=== PATIENT | female | born 1945 | race Caucasian/White ===

== ENCOUNTER 2016-10-26 13:48 | Outpatient (CLI) | payer MEDICARE, OTHER ==
--- NOTE | 2016-10-27 18:48 | XRAY Report ---
CHEST, PA AND LATERAL: 10/26/2016 CLINICAL HISTORY: Shortness of breath upon exertion. FINDINGS: Bony thorax is normal. Heart and great vessels appear normal. Mediastinum is not widened . Pulmonary parenchyma is normal. IMPRESSION: NORMAL EXAMINATION. JOB #: [id number] EXT JOB #:[id number]
== END 2016-10-26 13:49 | disposition home or self-care (01) ==
LOC: DI 13:48
PROVIDERS: ATTEND Physician Assistant
DX: R07.9 Chest pain, unspecified (principal); R06.00 Dyspnea, unspecified
CPT/HCPCS: 71020; 93306

== ENCOUNTER 2017-03-29 07:27 | Outpatient (CLI) | payer MEDICARE, OTHER ==
[2017-03-29] MEDS ORDERED: IOPAMIDOL-300 100 ML VIAL ONE (07:53)
[2017-03-29] MEDS ORDERED: IOPAMIDOL-300 100 ML VIAL IVP ONE (10:23)
--- NOTE | 2017-03-29 12:58 | CT Report ---
CT BRAIN WITH AND WITHOUT CONTRAST: 03/29/2017 CLINICAL INDICATION: Tremors, dizziness. TECHNIQUE: Axial CT images of the brain were obtained prior to and following 80 mL Isovue-300 intrav enously. No previous head CT is available for comparison. In accordance with CT protocol optimization, one or more of the following dose reduction techniques w ere utilized for this exam: automated exposure control, adjustment of mA and/or KV based on patient size, or use of iterative reconstructive technique. FINDINGS: The ventricles and sulci demonstrate mild symmetric enlargement, compatible with atrophy. There is no evidence of hemorrhage, mass effect, or midline shift. The basilar cisterns are patent. No abnormal enhancement is appreciated following contrast administration. The visualized orbital c ontents and paranasal sinuses are unremarkable. No calvarial fracture is seen. IMPRESSION: MILD ATROPHY. OTHERWISE, NORMAL CT OF THE BRAIN WITH AND WITHOUT CONTRAST. JOB #: [id number] EXT JOB #:[id number]
--- NOTE | 2017-03-30 10:25 | Ultrasound Report ---
CAROTID DUPLEX: 03/29/2017 CLINICAL INDICATION: Tremors, dizziness. TECHNIQUE: Real-time sonographic vascular imaging was performed by the nuclear medicine officer through the carotid arteries utilizing both color-flow and Doppler spectral analysis. Multiple electronics parts sales representative static images were saved for review. Vessel PSV cm/sec 2D Plaque Estimate % EDV cm/sec ICA/CCA PSV % Stenosis RCCA Prox 69 -- RCCA Dist 56 19 -- RECA 58 -- RT BULB 50 -- 9 0.89 CB Prox 50 -- 17 0.89 CB Mid 65 -- 25 1.16 CB Dist 80 -- 30 1.43 RVA 92 RVA flow direction: Antegrade. Vessel PSV cm/sec 2D Plaque Estimate % EDV cm/sec ICA/CCA PSV % Stenosis LCCA Prox 106 -- LCCA Dist 73 24 -- LECA 67 -- LFT BULB 72 -- 14 0.99 LICA Prox 72 -- 26 0.99 LICA Mid 109 -- 38 1.49 LICA Dist 84 -- 32 1.15 LVA 47 LVA flow direction: Antegrade. Velocity criteria are extrapolated from diameter data as defined by the Society of Radiologists in Ultrasound Consensus Conference Radiology 2003; 229; 340-346. Degree of Stenosis % ICA PSV cm/sec Plaque Estimate % ICA/CCA RSV Ratio ICA EDV cm/sec Normal < 125 None < 2.0 < 40 <50 < 125 < 50 < 2.0 < 40 50-69 125 - 130 >/= 50 2.0 - 4.0 40 - 100 >/= 70 but less than near occlusion > 230 >/= 50 > 4.0 > 100 Near occlusion High, low, or undetectable Visible lumen Variable Variable Total occlusion Undetectable No detectable lumen Not applicable Not applicable FINDINGS RIGHT: There is no plaquing in the right carotid bifurcation or internal carotid artery. LEFT: There is no plaquing in the left carotid bifurcation or internal carotid artery. The vertebral arteries demonstrate antegrade flow bilaterally. IMPRESSION: NORMAL CAROTID DUPLEX. [facility]
== END 2017-03-29 07:28 | disposition home or self-care (01) ==
LOC: DI 07:27
PROVIDERS: ATTEND Nurse Practitioner Family
DX: R42 Dizziness and giddiness (principal); R25.1 Tremor, unspecified; G31.9 Degenerative disease of nervous system, unspecified
CPT/HCPCS: 70470; 93880; Q9967

== ENCOUNTER 2017-05-13 13:17 | Outpatient (CLI) | payer MEDICARE, OTHER ==
--- NOTE | 2017-05-14 13:28 | Mammography Report ---
DATE OF SERVICE: 05/13/2017 DIGITAL BILATERAL SCREENING MAMMOGRAM: 05/13/2017 COMPARISON: Mammogram 04/16/2016. INDICATION: Screening mammography. TECHNIQUE: Bilateral MLO and CC breast views. FINDINGS: There are scattered fibroglandular densities. No dominant mass, architectural distortion, or concerning clusters of microcalcifications are seen. IMPRESSION: BIRADS CATEGORY 1-NEGATIVE. RECOMMENDATION: ANNUAL SCREENING MAMMOGRAM. STANDARD QUALIFYING STATEMENTS: 1. This examination was reviewed with the aid of Computer-Aided Detection (CAD) . 2. A negative or benign imaging report should not delay biopsy if clinically suspicious findings are present. Consider surgical consultation if warranted. More than 5% of cancers are not identified by imaging. 3. Dense breasts may obscure an underlying neoplasm. TD: 05/14/2017 14:27 MTDD
== END 2017-05-13 13:18 | disposition home or self-care (01) ==
LOC: DI.S 13:17
PROVIDERS: ATTEND Physician Assistant
DX: Z12.31 Encounter for screening mammogram for malignant neoplasm of breast (principal)
CPT/HCPCS: 77067

== ENCOUNTER 2018-06-03 13:53 | Outpatient (CLI) | payer MEDICARE, OTHER ==
--- NOTE | 2018-06-06 08:51 | Mammography Report ---
Reason: SCREENING MAMMO Procedure Date: 06/03/2018 Accession Number: [id number] / [id number] Procedure: LEONID - Screening Mammo w/Jerson CPT Code: FULL RESULT: EXAM: Screening mammogram with tomography. DATE: 06/03/2018 2:24 PM CLINICAL HISTORY: Screening encounter. No reported risk factors. TECHNIQUE: Bilateral CC and MLO views were obtained. COMPARISON: 05/13/2017 through 11/14/2013. FINDINGS: The breasts demonstrate scattered fibroglandular densities bilaterally. There are coarse typically benign calcifications. No suspicious masses, clustered microcalcifications, or regions of architectural distortion are identified. IMPRESSION: Benign findings RECOMMENDATION: Routine annual screening unless otherwise clinically indicated. BIRADS CATEGORY 2: Benign findings STANDARD QUALIFYING STATEMENTS: 1. This examination was not reviewed with the aid of Computer-Aided Detection (CAD). 2. A negative or benign imaging report should not preclude biopsy if clinically suspicious findings are present. 3. Dense breasts may obscure an underlying neoplasm. 4. This examination was reviewed with the aid of 3D breast imaging (tomosynthesis).
== END 2018-06-03 13:54 | disposition home or self-care (01) ==
LOC: DI 13:53
DX: Z12.31 Encounter for screening mammogram for malignant neoplasm of breast (principal)
CPT/HCPCS: 77063; 77067

== ENCOUNTER 2019-07-12 10:36 | Outpatient (CLI) | payer MEDICARE, OTHER ==
--- NOTE | 2019-07-12 12:55 | Mammography Report ---
Reason: ROUTINE MAMMO Procedure Date: 07/12/2019 Accession Number: [id number] / [id number] Procedure: MGS - Screening Mammo Dig Bilat CPT Code: Final Report FULL RESULT: EXAM: Screening Mammo Dig Bilat DATE: 07/12/2019 10:54 AM CLINICAL HISTORY: Screening encounter. TECHNIQUE: (B) - Bilateral CC and MLO views were obtained. COMPARISON: 06/03/2018 through 02/27/2010. PARENCHYMAL PATTERN: (A) - The breast(s) demonstrate(s) scattered fibroglandular densities. FINDINGS: There are no suspicious masses, calcifications, or areas of distortion. IMPRESSION: Negative examination. BI-RADS category 1. RECOMMENDATION: (ANNUAL) - Recommend routine annual screening mammography. BI-RADS CATEGORY: (1) - Negative. STANDARD QUALIFYING STATEMENTS: 1. This examination was reviewed with the aid of Computer-Aided Detection (CAD). 2. A negative or benign imaging report should not preclude biopsy if clinically suspicious findings are present. 3. Dense breasts may obscure an underlying neoplasm. 4. This examination was reviewed without the aid of 3D breast imaging (tomosynthesis).
== END 2019-07-12 10:37 | disposition home or self-care (01) ==
LOC: DI.S 10:36
PROVIDERS: ATTEND Physician Assistant
DX: Z12.31 Encounter for screening mammogram for malignant neoplasm of breast (principal)
CPT/HCPCS: 77067

== ENCOUNTER 2019-07-14 09:46 | Outpatient (CLI) | payer MEDICARE, OTHER ==
--- NOTE | 2019-07-17 08:25 | DEXA Report ---
Reason: AGE RELATED OSTEOPOROSIS Procedure Date: 07/14/2019 Accession Number: [id number] / [id number] Procedure: DEX - Dexa Spine and/or Hip CPT Code: Final Report FULL RESULT: EXAM: Dexa Spine and/or Hip DATE: 07/14/2019 10:37 AM CLINICAL HISTORY: AGE RELATED OSTEOPOROSIS TECHNIQUE: Dual energy x-ray absorptiometry (DXA) was performed on a Syncapse System. Regions measured are the AP Spine, femoral neck, and if needed forearm. COMPARISON: 04/20/2016. In accordance with the International Society for Clinical Densitometry (ISCD) guidelines, data from previous exams may be reanalyzed using current recommendations and techniques. This is done to allow a more accurate basis for comparison with the current study. FINDINGS: The data for the lumbar spine is as follows: BMD (g/cm/cm) T-SCORE Z-SCORE REGION L1 0.876 -2.1 -0.6 L2 0.970 -1.9 -0.4 L3 1.216 0.1 1.6 L4 1.063 -1.1 0.3 TOTAL 1.040 -1.2 0.3 NOTE: All evaluable vertebrae are used for classification The data for the hip is as follows: BMD (g/cm/cm) T-SCORE Z-SCORE REGION Neck 0.792 -1.8 0.0 TOTAL 0.798 -1.7 -0.1 NOTE: The femoral neck or total proximal femur, whichever is lowest, is used for classification. DXA RESULTS SUMMARY: Spine SCAN DATE [age]GE BMD CHANGE VS CHANGE VS PREVIOUS PREVIOUS % 07[age]14/2019 [age] 1[age]040 0.097* 10.3* 04[age]20/2016 [age] 0[age]943 * Denotes significant change at the 95% confidence level. Denotes dissimilar scan types or analysis methods. DXA RESULTS SUMMARY: Hip SCAN DATE [age]GE BMD CHANGE VS CHANGE VS PREVIOUS PREVIOUS % [birth year][age][birth year]2019 [age] 0.798 -0.021 -2.6 04[age]20[birth year]2016 [age] 0[age]819 * Denotes significant change at the 95% confidence level. Denotes dissimilar scan types or analysis methods. IMPRESSION: THE WHO CLASSIFICATION BASED ON THE INTERNATIONAL REFERENCE STANDARD IS OSTEOPENIA. THE FRACTURE RISK IS INCREASED. Interval decrease in bone density in the lumbar spine is statistically significant. RECOMMENDATION: Patients with diagnosis of osteoporosis or osteopenia should have regular bone mineral density assessment. For those eligible for Medicare, routine testing is allowed once every 2 years. Testing frequency can be increased for patients who have rapidly progressing disease or for those who are receiving medical therapy to restore bone mass. COMMENT: World Health Organization (WHO) definitions for osteoporosis and osteopenia: NORMAL BMD: T-score at -1.0 or higher, fracture risk is low OSTEOPENIA BMD: T-score between -1.0 and -2.5, fracture risk is increased. OSTEOPOROSIS BMD: T-score at -2.5 or lower, fracture risk is high. National Osteoporosis Foundation recommends: 1. Obtain adequate dietary calcium (at least 1200 mg per day) and vitamin D (400-800 international units per day). 2. Participate, as appropriate, in regular weightbearing and muscle-strengthening exercise. 3. Avoid tobacco use and reduce alcohol and caffeine intake. 4. For more detailed information see the website at www.NOF.org.
== END 2019-07-14 09:47 | disposition home or self-care (01) ==
LOC: DI 09:46
PROVIDERS: ATTEND Physician Assistant
DX: M85.89 Other specified disorders of bone density and structure, multiple sites (principal)
CPT/HCPCS: 77080

== ENCOUNTER 2021-03-13 08:46 | Outpatient (CLI) | payer MEDICARE, OTHER ==
[2021-03-13 14:30] LABS: BASOPHILS # (AUTO) 0.1 10^3/uL (0.0-0.1); BASOPHILS % (AUTO) 1.3 %; EOSINOPHILS # (AUTO) 0.1 10^3/uL (0.0-0.7); EOSINOPHILS % (AUTO) 2.6 %; HCT - HEMATOCRIT 40.4 % (37.0-47.0); HGB - HEMOGLOBIN 12.8 g/dL (12.0-16.0); LYMPHOCYTES % (AUTO) 21.4 %; MEAN CORPUSCULAR HEMOGLOBIN 30.8 pg (27.0-31.0); MEAN CORPUSCULAR HGB CONC 31.7 g/dL (32.0-36.0); MEAN CORPUSCULAR VOLUME 97.1 fL (81.0-99.0); MEAN PLATELET VOLUME 11.1 fL (7.9-10.8); MONOCYTES # (AUTO) 0.5 10^3/uL (0.0-1.0); MONOCYTES % (AUTO) 11.9 %; NEUTROPHILS # (AUTO) 2.8 10^3/uL (1.5-6.6); NEUTROPHILS % (AUTO) 62.6 %; PLT - PLATELET COUNT 239 10^3/uL (130-450); RED BLOOD COUNT 4.16 10^6/uL (4.20-5.40); RED CELL DISTRIBUTION WIDTH 12.8 % (12.0-15.0); WHITE BLOOD COUNT 4.5 x10^3/uL (4.8-10.8)
[2021-03-13 15:35] LABS: FOLATE 11.23 ng/mL (5.90 - >24.8)
== END 2021-03-13 08:47 | disposition home or self-care (01) ==
LOC: LAB.S 08:46
PROVIDERS: ATTEND Nurse Practitioner Family
DX: R20.0 Anesthesia of skin (principal)
CPT/HCPCS: 36415; 82607; 82746; 83036; 85025

== ENCOUNTER 2021-04-21 08:00 | Outpatient (CLI) | payer MEDICARE, OTHER ==
--- NOTE | 2021-04-22 14:01 | Mammography Report ---
BILATERAL DIGITAL SCREENING MAMMOGRAM 3D/2D: 04/21/2021 CLINICAL: Routine screening. Comparison is made to exams dated: 07/12/2019 mammogram, 06/03/2018 mammogram, 05/13/2017 mammogram, 04/16 mammogram, 11/08/2014 mammogram, and 11/14/2013 mammogram - [facility]. The tiss ue of both breasts is predominantly fatty. No significant masses, calcifications, or other findings are seen in either breast. There has been no significant interval change. IMPRESSION: NEGATIVE There is no mammographic evidence of malignancy. A 1 year screening mammogram is recommended. This exam was interpreted at Station ID: [id number]. NOTE: For mammograms, a report in lay terms will be sent to the patient. Approximately 15% of breast malignancies will not be visualized mammographically. In the management of a palpable breast mass, a negative mammogram must not discourage biopsy of a clinically suspicious lesion. Electronically Signed By: Burak Hernandez acr/penrad:04/21/2021 10:46:52 ACR BI-RADS Category 1: Negative 3341F PARENCHYMAL PATTERN: (F) - The breast(s) demonstrate(s) diffuse fatty replacement. BI-RADS CATEGORY: (1) - 1 RECOMMENDATION: (ANNUAL) - Recommend routine annual screening mammography. [id number] 1 year screening LATERALITY: (B)
== END 2021-04-21 23:59 | disposition home or self-care (01) ==
LOC: DI.S 08:00
PROVIDERS: ATTEND Nurse Practitioner Family
DX: Z12.31 Encounter for screening mammogram for malignant neoplasm of breast (principal)

== ENCOUNTER 2022-07-06 09:58 | Outpatient (CLI) | payer MEDICARE, OTHER ==
--- NOTE | 2022-07-07 10:51 | Mammography Report ---
BILATERAL DIGITAL SCREENING MAMMOGRAM 3D/2D: 07/06/2022 CLINICAL: Routine screening. Comparison is made to exams dated: 04/21/2021 mammogram, 07/12/2019 mammogram, and 06/03/2018 mammogram - [facility]. Both breasts are heterogeneously dense, which may obscure small masses (category c / 51-75% glandular tissue). No significant masses, calcifications, or other findings are seen in either breast. There has been no significant interval change. IMPRESSION: NEGATIVE There is no mammographic evidence of malignancy. A 1 year screening mammogram is recommended. Based on the Tyrer Cuzick model (a risk assessment model) the patients lifetime risk is 2.9% and her 10 year risk is 0.0%. According to the ACR, ACS, and NCCN guidelines, an annual breast MRI exam marissa g with mammogram is recommended if the patients lifetime risk is 20% or greater. This exam was interpreted at Station ID: [id number]. NOTE: For mammograms, a report in lay terms will be sent to the patient. Approximately 15% of breast malignancies will not be visualized mammographically. In the management of a palpable breast mass, a negative mammogram must not discourage biopsy of a clinically suspicious lesion. Electronically Signed By: Reese correa/shailesh:07/06/2022 13:46:03 letter sent: No_Letter ACR BI-RADS Category 1: Negative 3341F PARENCHYMAL PATTERN: (D) - The breast(s) demonstrate(s) heterogeneously dense fibroglandular yevgeniy seo. BI-RADS CATEGORY: (1) - 1 RECOMMENDATION: (ANNUAL) - Recommend routine annual screening mammography. [id number] 1 year screening LATERALITY: (B)
== END 2022-07-06 09:59 | disposition home or self-care (01) ==
LOC: DI.S 09:58
PROVIDERS: ATTEND Nurse Practitioner Family
DX: Z12.31 Encounter for screening mammogram for malignant neoplasm of breast (principal)

== ENCOUNTER 2023-09-20 08:40 | Outpatient (CLI) | payer MEDICARE, OTHER | END 2023-09-20 08:41 | disposition home or self-care (01) | LOC: LAB.S 08:40 | PROVIDERS: ATTEND Orthopaedic Surgery | DX: M62.81 Muscle weakness (generalized) (principal) | CPT/HCPCS: 36415; 85651; 86140 ==